=== PATIENT | female | born 1980 | race American Indian/Alaskan Native ===

== ENCOUNTER 2018-08-25 12:29 | Emergency (ER) | payer SELFPAY ==
[2018-08-25] MEDS ORDERED: NACL 0.9% 1000 ML 1,000 ML IV ONE (17:26)
[2018-08-25] MEDS ORDERED: SOLU-Medrol IV ONE (17:26)
[2018-08-25] MEDS ORDERED: REGLAN IV ONE (17:26)
[2018-08-25] MEDS ORDERED: FIORICET PO ONE (17:26)
[2018-08-25] MEDS ORDERED: IMITREX SUB-Q ONE (17:27)
[2018-08-25] MEDS ORDERED: BENADRYL IV ONE (17:27)
--- NOTE | 2018-08-25 17:56 | Emergency Department Report ---
ED General Adult HPI - General Chief complaint: Headache Stated complaint: MIGRANE Time Seen by Provider: 08/25/18 17:12 Source: patient Mode of arrival: Ambulatory Limitations: No Limitations - History of Present Illness Initial comments: Patient complains of a headache that started 4 days ago. Patient describes a headache as being throbbing in nature and diffuse. Patient works as a trucker hand and states that she wants to make sure everything is okay because of her job. Patient states is not the worst headache of her life and is made worse by loud noises or light. Patient denies any facial droop, slurred speech, weakness. Patient also states she had a recent plane trip where she had difficulty acclimating to the changes in altitude -: Gradual Location: head Radiation: non-radiation Severity scale (0 -10): 7 Quality: other (Throbbing) Consistency: constant Improves with: none Worsens with: none Associated Symptoms: denies other symptoms Treatments Prior to Arrival: none - Related Data Previous Rx's Medication Instructions Recorded Last Taken Type Amoxicillin/Potassium Clav 1 each PO BID #14 tablet 08/25/18 Unknown Rx [Augmentin 875-125 Tablet] Butalb/Acetamin/Caff 50-325-40 1 tab PO Q6HR PRN #20 tab 08/25/18 Unknown Rx [Fioricet] Cetirizine HCl/Pseudoephedrine 1 each PO BID #30 tab.er.12h 08/25/18 Unknown Rx [Zyrtec-D Tablet] Fluticasone [Flonase] 1 spray NS QDAY #1 bottle 08/25/18 Unknown Rx Allergies Allergy/AdvReac Type Severity Reaction Status Date / Time No Known Allergies Allergy Unverified 08/25/18 12:37 ED Review of Systems ROS: Stated complaint: MIGRANE Other details as noted in HPI Comment: All other systems reviewed and negative Constitutional: denies: chills, fever Eyes: denies: eye pain, eye discharge, vision change ENT: denies: ear pain, throat pain Respiratory: denies: cough, shortness of breath, wheezing Cardiovascular: denies: chest pain, palpitations Endocrine: no symptoms reported Gastrointestinal: denies: abdominal pain, nausea, diarrhea Genitourinary: denies: urgency, dysuria, discharge Musculoskeletal: denies: back pain, joint swelling, arthralgia Skin: denies: rash, lesions Neurological: headache. denies: weakness, paresthesias Psychiatric: denies: anxiety, depression Hematological/Lymphatic: denies: easy bleeding, easy bruising ED Past Medical Hx - Past Medical History Previous Medical History?: Yes Hx Headaches / Migraines: Yes - Surgical History Past Surgical History?: Yes Additional Surgical History: x 2 - Social History Smoking Status: Never Smoker Substance Use Type: None - Medications Home Medications: Home Medications Medication Instructions Recorded Confirmed Last Taken Type Amoxicillin/Potassium Clav 1 each PO BID #14 tablet 08/25/18 Unknown Rx [Augmentin 875-125 Tablet] Butalb/Acetamin/Caff 50-325-40 1 tab PO Q6HR PRN #20 tab 08/25/18 Unknown Rx [Fioricet] Cetirizine HCl/Pseudoephedrine 1 each PO BID #30 tab.er.12h 08/25/18 Unknown Rx [Zyrtec-D Tablet] Fluticasone [Flonase] 1 spray NS QDAY #1 bottle 08/25/18 Unknown Rx ED Physical Exam - General Limitations: No Limitations General appearance: alert, in no apparent distress - Head Head exam: Present: atraumatic, normocephalic - Eye Eye exam: Present: normal appearance - ENT ENT exam: Present: mucous membranes moist - Neck Neck exam: Present: normal inspection - Respiratory Respiratory exam: Present: normal lung sounds bilaterally. Absent: respiratory distress, wheezes, rales, rhonchi - Cardiovascular Cardiovascular Exam: Present: regular rate, normal rhythm. Absent: systolic murmur, diastolic murmur, rubs, gallop - GI/Abdominal GI/Abdominal exam: Present: soft, normal bowel sounds. Absent: distended, tenderness - Extremities Exam Extremities exam: Present: normal inspection - Back Exam Back exam: Present: normal inspection - Neurological Exam Neurological exam: Present: alert, oriented X3, CN II-XII intact, other (finger to nose intact, [id number] intact, rapid hand movements intact.). Absent: motor sensory deficit - Psychiatric Psychiatric exam: Present: normal affect, normal mood - Skin Skin exam: Present: warm, dry, intact, normal color. Absent: rash ED Course Vital Signs 08/25/18 12:37 Temperature 98.3 F Pulse Rate 88 Respiratory 16 Rate Blood Pressure 131/51 O2 Sat by Pulse 100 Oximetry ED Medical Decision Making - Medical Decision Making Discussed CT results with the patient Headache completely resolved after medications Critical care attestation.: If time is entered above; I have spent that time in minutes in the direct care of this critically ill patient, excluding procedure time. ED Disposition Clinical Impression: Headache, Sinus congestion Disposition: - TO HOME OR SELFCARE Is pt being admited?: No Does the pt Need Aspirin: No Condition: Stable Instructions: Sinusitis (ED), Acute Headache (ED) Additional Instructions: return if worse Prescriptions: Amoxicillin/Potassium Clav [Augmentin 875-125 Tablet] 1 each PO BID #14 tablet Butalb/Acetamin/Caff 50-325-40 [Fioricet] 1 tab PO Q6HR PRN #20 tab PRN Reason: Headache Cetirizine HCl/Pseudoephedrine [Zyrtec-D Tablet] 1 each PO BID #30 tab.er.12h Fluticasone [Flonase] 1 spray NS QDAY #1 bottle Referrals: PRIMARY MD PRATEEK [Primary Care Provider] - 3-5 Days RIN JULIAN MD [Staff Physician] - 3-5 Days [facility] [Provider Group] - 3-5 Days Time of Disposition: 19:35
--- NOTE | 2018-08-25 19:16 | Cat Scan Report ---
FINAL REPORT PROCEDURE: CT HEAD/BRAIN WO CON TECHNIQUE: Computerized tomography of the head was performed without contrast material. HISTORY: headache COMPARISON: No prior studies are available for comparison. FINDINGS: There is no CT evidence of intracranial mass, hemorrhage, acute territorial infarction, or hydrocephalus. The intracranial arteries are symmetric in density. Calvarium is intact. Trace amount of right ethmoid sinus mucosal thickening. Mastoids are aerated. IMPRESSION: No CT evidence of acute intracranial abnormality. Mild right ethmoid sinus mucosal thickening
[2018-08-25 20:01] VITALS: BP 126/84
== END 2018-08-25 20:00 | disposition home or self-care (01) ==
LOC: ED 12:29
DX: R09.81 Nasal congestion (principal); R51 Headache; G43.909 Migraine, unspecified, not intractable, without status migrainosus
CPT/HCPCS: 70450; 96372; 96374; 96375; 99283; J1200; J2765; J2930; J7030; J3030

== ENCOUNTER 2019-09-28 15:20 | Emergency (ER) | payer SELFPAY ==
--- NOTE | 2019-09-28 16:00 | Emergency Department Report ---
Blank Doc - Documentation Documentation: 38-year-old female that presents with rectal pain. This initial assessment/diagnostic orders/clinical plan/treatment(s) is/are subject to change based on patient's health status, clinical progression and re- assessment by fellow clinical providers in the ED. Further treatment and workup at subsequent clinical providers discretion. Patient/guardians urged not to elope from the ED as their condition may be serious if not clinically assessed and managed. Initial orders include: 1- Patient sent to [facility] for further evaluation and treatment
[2019-09-28 16:02] VITALS: BP 155/94
== END 2019-09-28 20:24 | disposition left against medical advice (07) ==
LOC: ED 15:20
DX: M54.9 Dorsalgia, unspecified (principal); Z53.21 Procedure and treatment not carried out due to patient leaving prior to being seen by health care provider